=== PATIENT | male | born 1995 | race American Indian/Alaskan Native ===

== ENCOUNTER 2021-08-08 01:25 | Emergency (ER) | payer SELFPAY ==
[2021-08-08] MEDS ORDERED: PENICILLIN G BENZATHINE 1.2 MILLION UNIT/2 ML INJ IM ONE (04:12)
--- NOTE | 2021-08-08 04:13 | Emergency Department Report ---
ED General Adult HPI - General Chief complaint: Urogenital-Male Stated complaint: SYPHILIS SYMPTOMS Time Seen by Provider: 08/08/21 01:46 Source: patient Mode of arrival: Ambulatory Limitations: No Limitations - History of Present Illness Initial comments: Patient is a 26-year-old -[place] male with a history of HIV presents to the ED with complaint of acute onset persistent irritated anal rash for the last 2 days. Patient states that he was previously diagnosed with syphilis in the past and it presented the same way as the lesion and was then treated completely with medications. Patient states that he is concerned that he may be having another round of syphilis infection given the fact that he practices unprotected anal sex. Patient denies fever, chills, nausea and vomiting, dysuria, urinary frequency and urgency, penile discharge, low back pain, abdominal pain, testicular pain, chest pain or shortness of breath or sore throat. MD Complaint: Anal lesion with irritation, no pain -: Sudden, days(s) (2) Location: buttocks Radiation: non-radiation Severity scale (0 -10): 1 Quality: dull Consistency: constant Improves with: none Worsens with: none Associated Symptoms: denies other symptoms, rash (mild anal lesion). denies: confusion, chest pain, cough, diaphoresis, fever/chills, headaches, loss of appetite, malaise, nausea/vomiting, seizure, shortness of breath, syncope, weakness Treatments Prior to Arrival: none - Related Data Allergies Allergy/AdvReac Type Severity Reaction Status Date / Time No Known Allergies Allergy Unverified 08/08/21 01:40 ED Review of Systems ROS: Stated complaint: SYPHILIS SYMPTOMS Other details as noted in HPI Constitutional: denies: chills, fever Eyes: denies: eye pain, eye discharge, vision change ENT: denies: ear pain, throat pain Respiratory: denies: cough, shortness of breath, wheezing Cardiovascular: denies: chest pain, palpitations Endocrine: no symptoms reported Gastrointestinal: denies: abdominal pain, nausea, diarrhea Genitourinary: denies: urgency, dysuria Musculoskeletal: denies: back pain, joint swelling, arthralgia Skin: rash (mildly irritated anal lesion). denies: lesions, change in color, change in hair/nails, pruritus Neurological: denies: headache, weakness, paresthesias Psychiatric: denies: anxiety, depression Hematological/Lymphatic: denies: easy bleeding, easy bruising ED Physical Exam - General Limitations: No Limitations General appearance: alert, in no apparent distress - Head Head exam: Present: atraumatic, normocephalic, normal inspection - Eye Eye exam: Present: normal appearance, PERRL, EOMI Pupils: Present: normal accommodation - ENT ENT exam: Present: normal exam, normal orophraynx, mucous membranes moist, TM's normal bilaterally, normal external ear exam - Neck Neck exam: Present: normal inspection, full ROM. Absent: tenderness - Respiratory Respiratory exam: Present: normal lung sounds bilaterally. Absent: respiratory distress, wheezes, rales, rhonchi, chest wall tenderness, accessory muscle use, prolonged expiratory - Cardiovascular Cardiovascular Exam: Present: regular rate, normal rhythm, normal heart sounds. Absent: systolic murmur, diastolic murmur, rubs, gallop - GI/Abdominal GI/Abdominal exam: Present: soft, normal bowel sounds. Absent: distended, tenderness, guarding, hyperactive bowel sounds, hypoactive bowel sounds, mass - Extremities Exam Extremities exam: Present: normal inspection, full ROM, normal capillary refill - Back Exam Back exam: Present: normal inspection, full ROM. Absent: tenderness, CVA tenderness (R), CVA tenderness (L), muscle spasm, paraspinal tenderness, vertebral tenderness - Neurological Exam Neurological exam: Present: alert, oriented X3, CN II-XII intact, normal gait, reflexes normal - Psychiatric Psychiatric exam: Present: normal affect, normal mood - Skin Skin exam: Present: warm, dry, intact, normal color, rash (mildly irritated small anal lesion). Absent: cyanosis, diaphoretic, erythema, urticaria, vesicles, petechiae, abrasion, ecchymosis ED Course Vital Signs 08/08/21 01:38 Temperature 98.9 F Pulse Rate 88 Respiratory 16 Rate Blood Pressure 117/60 O2 Sat by Pulse 98 Oximetry ED Medical Decision Making - Medical Decision Making This is a 26-year-old -[place] male with a history of HIV presents to the ED with complaint of acute onset persistent irritated anal rash for the last 2 days. Patient states that he was previously diagnosed with syphilis in the past and it presented the same way as the lesion and was then treated completely with medications. Patient states that he is concerned that he may be having another round of syphilis infection given the fact that he practices unprotected anal sex. In the ED, patient is alert and oriented x3 and is not in any distress. RPR test results were positive for syphilis. Patient was therefore treated in the ED with penicillin G 2,400,000 units intramuscular injection and discharged home and advised to follow-up with [facility] or his infectious disease physician in 7 to 10 days for reevaluation. Patient was also advised to ensure that his sexual partner also gets treated for the sa me. Patient is advised return to the ED immediately if symptoms get worse. - Differential Diagnosis cellulitis; primary syphilis; foliculitis Critical care attestation.: If time is entered above; I have spent that time in minutes in the direct care of this critically ill patient, excluding procedure time. ED Disposition Clinical Impression: Syphilis, primary anal Disposition: 01 HOME / SELF CARE / HOMELESS Is pt being admited?: No Does the pt Need Aspirin: No Condition: Stable Additional Instructions: Follow-up with your infectious disease physician or [facility] for further evaluation in 7 to 10 days. Return to the ED immediately if symptoms get worse Referrals: [facility] Depart [Outside] - 7-10 days Time of Disposition: 04:14 Print Language: HUNGARIAN
[2021-08-08 04:47] VITALS: BP 121/67
== END 2021-08-08 04:47 | disposition home or self-care (01) ==
LOC: ED 01:25
DX: A51.1 Primary anal syphilis (principal)
CPT/HCPCS: 36415; 86592; 86593; 86780; 96372; 99283; J0561